=== PATIENT | female | born 1990 ===

== ENCOUNTER 2017-02-17 14:14 | Emergency (ER) | payer OTHER ==
[2017-02-17 14:37] VITALS: RESP 18; TEMP 97.7; O2SAT 100
--- NOTE | 2017-02-17 15:25 | C.PDOC ---
History Of Present Illness 26 yr old female presents to the ER for evaluation of bilateral eye irritation and some redness to face developing for the past 3 days. 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 Patient denies fever, chills, sore throat, chest pain, SOB, nausea, vomiting, wheezing, headache, dizziness, weakness or numbness. Time Seen by Provider: 02/17/17 15:09 Chief Complaint (Nursing): Cough, Cold, Congestion History Per: Patient History/Exam Limitations: no limitations Onset/Duration Of Symptoms: Days (3) Current Symptoms Are (Timing): Still Present Past Medical History Reviewed: Historical Data, Nursing Documentation, Vital Signs Vital Signs: Last Vital Signs Temp 97.7 F 02/17/17 15:33 Pulse 67 02/17/17 15:33 Resp 18 02/17/17 15:33 BP 104/69 02/17/17 15:33 Pulse Ox 100 02/17/17 15:34 Family History: States: No Known Family Hx - Social History Hx Alcohol Use: No Hx Substance Use: No - Immunization History Hx Influenza Vaccination: No Review Of Systems Except As Marked, All Systems Reviewed And Found Negative. Constitutional: Negative for: Fever, Chills Eyes: Positive for: Other ((+) Bilateral eye irritation. ) ENT: Negative for: Throat Pain Cardiovascular: Negative for: Chest Pain Respiratory: Negative for: Shortness of Breath, Wheezing Gastrointestinal: Negative for: Nausea, Vomiting Skin: Positive for: Rash (Facial rash. ) Neurological: Negative for: Weakness, Numbness, Headache, Dizziness Physical Exam - Physical Exam Appears: Well, Non-toxic, No Acute Distress Skin: Normal Color, Warm, Dry, No Rash Eye(s): bilateral: Other (mild conjuctival injection, no discharge. No periorbital edema or erythema.) Ear(s): Bilateral: Normal Nose: Normal, No Discharge Oral Mucosa: Moist, No Drooling, No Trismus, Other (uvla midline, no edema.) Tongue: Normal Appearing, No Swelling Lips: Normal Appearing, No Swelling Throat: Normal, No Erythema, No Exudate, No Drooling Neck: Normal, Normal ROM, Supple Cardiovascular: Rhythm Regular Respiratory: Normal Breath Sounds Back: Normal Inspection Extremity: Normal ROM, No Pedal Edema Neurological/Psych: Oriented x3, Normal Speech ED Course And Treatment O2 Sat by Pulse Oximetry: 100 Pulse Ox Interpretation: Normal Progress Note: on re-evaluation, pt is afebrile, hemodynamicaly stable. Non- toxic. PulsEOx 100%RA. Tolerate po well in ED. Eyes: (+) exam c/w mild conjunctivitis likely allergic. ENT; no acute findings. uvula midline, no edema. Lungs: CTA B/L, BS equal B/L. neurologicaly intact Pt has clinical findings c/w allergic conjunctivitis. pt advised and ref. to F/u with PMD in 1- 2 days for re-eavl. return if any new changes. Medical Decision Making Medical Decision Making: PLAN: * HCG Urine * Benadryl PO * Pepcid PO * Prednisone PO Disposition Counseled Patient/Family Regarding: Diagnosis, Need For Followup, Rx Given - Disposition Referrals: [facility] [Outside] Disposition: HOME/ ROUTINE Disposition Time: 15:25 Condition: STABLE Additional Instructions: use mask, while at work Take medication as prescribed Follow up with PMD and Senior Accounting Associate in 2-3 days for re-evaluation. Return to ED if any worsening or new changes. Prescriptions: DiphenhydrAMINE [Benadryl] 25 mg PO BID #10 cap Prednisone [Deltasone] 20 mg PO DAILY #3 tablet Famotidine [Pepcid] 20 mg PO BID #10 tab Instructions: Conjunctivitis (ED), Allergies (ED) Print Language: UZBEK - Clinical Impression Clinical Impression: Allergic conjunctivitis - PA / MANAGER ORACLE / Resident Statement MD/DO has reviewed & agrees with the documentation as recorded. - Scribe Statement The provider has reviewed the documentation as recorded by the Scribe Zonia Velarde All medical record entries made by the Amritibvanessa were at my direction and personally dictated by me. I have reviewed the chart and agree that the record accurately reflects my personal performance of the history, physical exam, medical decision making, and the department course for this patient. I have also personally directed, reviewed, and agree with the discharge instructions and disposition.
[2017-02-17 15:37] VITALS: BP 104/69; PULSE 67
== END 2017-02-17 15:33 | disposition home or self-care (01) ==
LOC: C.ER 14:14
DX: H10.13 Acute atopic conjunctivitis, bilateral (principal)

== ENCOUNTER 2017-03-31 14:58 | Emergency (ER) | payer OTHER ==
[2017-03-31 15:07] VITALS: BP 120/74; PULSE 67; TEMP 98; O2SAT 99
[2017-03-31] MEDS ORDERED: Ciprofloxacin 0.3% OPTH SOLN OS STA (16:01)
--- NOTE | 2017-03-31 16:26 | C.PDOC ---
History Of Present Illness The patient, a 26 y/o female, presents to the ED for evaluation of redness, pain , and itchiness to right eye which began around 2 days ago. Patient also notes she had yellow discharge around the area this morning. She denies fever, chills , injury/trauma to the affected area. Time Seen by Provider: 03/31/17 15:18 Chief Complaint (Nursing): ENT Problem History Per: Patient History/Exam Limitations: None Onset/Duration Of Symptoms: Days (2) Current Symptoms Are (Timing): Still Present Past Medical History Reviewed: Historical Data, Nursing Documentation, Vital Signs Vital Signs: Last Vital Signs Temp 98.0 F 03/31/17 15:04 Pulse 67 03/31/17 15:04 Resp 20 03/31/17 16:32 BP 120/74 03/31/17 15:04 Pulse Ox 99 03/31/17 20:34 - Medical History PMH: No Chronic Diseases Surgical History: No Surg Hx Family History: States: Unknown Family Hx - Social History Hx Alcohol Use: No Hx Substance Use: No - Immunization History Hx Influenza Vaccination: No Review Of Systems Except As Marked, All Systems Reviewed And Found Negative. Constitutional: Negative for: Fever, Chills Eyes: Positive for: Pain, Redness (right ), Other (+itchiness to right eye. yellow discharge ) Physical Exam - Physical Exam Appears: Non-toxic, No Acute Distress Skin: Normal Color, Warm, Dry Eye(s): bilateral: Normal Inspection, PERRL, EOMI, right: Other (+conjunctival erythema. no discharge ) Ear(s): Bilateral: Normal Nose: Normal, No Discharge Oral Mucosa: Moist Throat: Normal, No Erythema, No Exudate Neck: Supple Extremity: Normal ROM, Capillary Refill (less than 2 seconds ) Neurological/Psych: Oriented x3, Normal Speech, Normal Cognition Gait: Steady ED Course And Treatment O2 Sat by Pulse Oximetry: 99 (on RA) Pulse Ox Interpretation: Normal Progress Note: Patient received Ciproflaxin OS. On reassessment, patient is resting comfortably, showing no signs of distress, and is stable for discharge. Patient is advised to follow up with Health Sciences Department Chair within 1-2 days for further evaluation. Disposition - Disposition Referrals: Abhay Blackburn MD [Staff Provider] - Disposition: HOME/ ROUTINE Disposition Time: 16:24 Condition: STABLE Additional Instructions: Follow up with Health Sciences Department Chair within 1-2 days. Return to Ed if feel worse. Prescriptions: Ketotifen Fumarate [Alaway 10 ml] 1 drop OU Q8 #10 ml Ciprofloxacin 0.3% [Ciloxan 0.3% Ophth SOLN] 1 drop OS Q2 #1 bottle Instructions: Conjunctivitis (ED) - Clinical Impression Clinical Impression: Conjunctivitis - PA / HEALTH SAFETY INSTRUCTOR / Resident Statement MD/DO has reviewed & agrees with the documentation as recorded. - Scribe Statement The provider has reviewed the documentation as recorded by the Scribe (Carlota Glasgow) All medical record entries made by the Scribe were at my direction and personally dictated by me. I have reviewed the chart and agree that the record accurately reflects my personal performance of the history, physical exam, medical decision making, and the department course for this patient. I have also personally directed, reviewed, and agree with the discharge instructions and disposition.
[2017-03-31 16:33] VITALS: RESP 20
== END 2017-03-31 16:32 | disposition home or self-care (01) ==
LOC: C.ER 14:58
DX: H10.9 Unspecified conjunctivitis (principal)

== ENCOUNTER 2018-12-26 10:54 | Emergency (ER) | payer OTHER ==
[2018-12-26 10:55] VITALS: BMI 23.0
[2018-12-26 11:15] VITALS: BP 92/63; PULSE 94; RESP 18; TEMP 98; O2SAT 100
--- NOTE | 2018-12-26 11:46 | C.PDOC ---
History Of Present Illness 28 year old female presents to ED with complaint of left ear pain that began 2 days ago. Patient complains of cough, sore throat, and congestion for the past 4 days. Complains of mild body aches and non-productive cough. No fever, chills, q-tipping , ear discharge, or hearing loss. Time Seen by Provider: 12/26/18 11:36 Chief Complaint (Nursing): Cough, Cold, Congestion History Per: Patient History/Exam Limitations: no limitations Onset/Duration Of Symptoms: Days Current Symptoms Are (Timing): Still Present Location Of Pain: Ear(s), Throat, Diffuse Myalgias Associated Symptoms: Sore Throat, Cough, Myalgias, Nasal Congestion. denies: Fever, Chills, Sputum Ear Symptoms: Left: Ear Pain, Right: None Past Medical History Reviewed: Historical Data, Nursing Documentation, Vital Signs Vital Signs: Last Vital Signs Temp 98 F 12/26/18 11:12 Pulse 94 H 12/26/18 11:12 Resp 18 12/26/18 11:12 BP 92/63 L 12/26/18 11:12 Pulse Ox 100 12/26/18 11:12 - Medical History PMH: No Chronic Diseases Surgical History: No Surg Hx Family History: States: Unknown Family Hx - Social History Hx Alcohol Use: No Hx Substance Use: No - Immunization History Hx Tetanus Toxoid Vaccination: No Hx Influenza Vaccination: No Hx Pneumococcal Vaccination: No Review Of Systems Constitutional: Negative for: Fever, Chills ENT: Positive for: Ear Pain (Left), Throat Pain. Negative for: Ear Discharge Respiratory: Positive for: Cough. Negative for: Sputum Musculoskeletal: Positive for: Other (generalized bodyaches) Physical Exam - Physical Exam Appears: Well, Non-toxic Skin: Normal Color, Warm, Dry Head: Atraumatic, Normacephalic Eye(s): bilateral: Normal Inspection Ear(s): Left: TM Erythema (with bulging), Other (no pain to traction ), Right: Normal Nose: Other (nasal congestion) Oral Mucosa: Moist Throat: Normal, No Erythema, No Exudate Neck: Supple Chest: Symmetrical, No Deformity, No Tenderness Cardiovascular: Rhythm Regular, No Murmur Respiratory: Normal Breath Sounds, No Rales, No Rhonchi, No Wheezing Neurological/Psych: Oriented x3, Normal Speech, Normal Cognition ED Course And Treatment O2 Sat by Pulse Oximetry: 100 Progress Note: Augmentin PO and Motrin PO given. Upon reassessment, patient is resting comfortably, showng no signs of distress, remains afebrile, reports improvement in symptoms. Pateint is stable for discharge and is advised [facility]. Advised to return to ED if symptoms persist or worsen. Medical Decision Making Medical Decision Making: viral syndrome vs L otitis media with ? bulging vs small growth on L TM in 4 o'clock position empiric abx and opt f/u with ENT 1 week Disposition Doctor Will See Patient In The: Office Counseled Patient/Family Regarding: Studies Performed, Diagnosis - Disposition Referrals: [facility] [Outside] [employer] [facility] [Outside] [facility] [Outside] Nguyễn Haynes MD [Staff Provider] - Disposition: HOME/ ROUTINE Disposition Time: 11:46 Condition: GOOD Additional Instructions: Augmentin (antibiotico) 1 tableta dos veces al susan por 7 shankar Ibuprofeno 400-600 mg cada 6 horas gustabo necessario Sigue con Dr. Haynes- Otolaryngologo en 1 semana para re-evaluacion del tympano izquierda Prescriptions: Amoxicillin/Clavulanate [Augmentin 875 MG-125 MG] 1 tab PO BID #13 tab Instructions: Ear Infections (Otitis Media), Viral Syndrome (DC) Forms: [employer] (Serbian) Print Language: TURKMEN - Clinical Impression Clinical Impression: Viral disease, Ear pain, left - Scribe Statement The provider has reviewed the documentation as recorded by the Scribe (Gisell Luu) Provider Attestation: All medical record entries made by the Scribe were at my direction and personally dictated by me. I have reviewed the chart and agree that the record accurately reflects my personal performance of the history, physical exam, medical decision making, and the department course for this patient. I have also personally directed, reviewed, and agree with the discharge instructions and disposition.
[2018-12-26] MEDS ORDERED: Amoxicillin-Clav 875-125 mg Tab PO STA (11:49)
[2018-12-26] MEDS ORDERED: Amoxicillin-Clav 875-125 mg Tab PO ONE (12:01)
== END 2018-12-26 11:59 | disposition home or self-care (01) ==
LOC: C.ER 10:54
DX: B34.9 Viral infection, unspecified (principal); H92.02 Otalgia, left ear